=== PATIENT | male | born 1935 | race Hispanic/Latino ===

== ENCOUNTER 2016-08-16 09:47 | Outpatient (CLI) | payer MEDICARE ==
[2016-08-16 10:30] LABS: #Basophils 0.1 thou/uL (0.0-0.2); #Eosinphils 0.2 thou/uL (0.0-0.7); #Lymphocytes 2.7 thou/uL (1.20-3.40); #Monocytes 0.5 thou/uL (0.11-0.59); #Neutrophils 2.9 thou/uL (1.40-6.50); %Basophils 1.3 % (0.0-1.0); %Eosinophils 2.7 % (0.0-10.0); %Monocytes 7.6 % (0.0-10.0); Hematocrit 41.6 % (42.0-52.0); Mean Platelet Volume 7.8 fL (7.4-10.4); White Blood Cell (WBC) Count 6.3 thou/uL (4.8-10.8)
[2016-08-16 10:46] LABS: ALT (SGPT) 25 U/L (0-55); AST (SGOT) 25 U/L (5-34); Alkaline Phosphatase 42 U/L (40-150); Anion Gap 14 mmol/L (10-20); BUN (Urea Nitrogen) 14 mg/dL (8.4-25.7); Bilirubin, Total 0.7 mg/dL (0.2-1.2); Calc. Creatinine Clearance 0 mL/min (70-130); Calcium 9.2 mg/dL (7.8-10.44); Carbon Dioxide 28 mmol/L (23-31); Chloride 104 mmol/L (98-107); Estimated GFR-MDRD 60; LDL Cholesterol, Calculated 74 mg/dL
== END 2016-08-16 09:48 | disposition home or self-care (01) ==
LOC: HPCALD 09:47
PROVIDERS: ATTEND Family Medicine
DX: E78.00 Pure hypercholesterolemia, unspecified (principal); E11.9 Type 2 diabetes mellitus without complications; I10 Essential (primary) hypertension
CPT/HCPCS: 36415; 80053; 80061; 83036; 85025

== ENCOUNTER 2016-12-09 10:02 | Outpatient (CLI) | payer MEDICARE ==
[2016-12-09 10:47] LABS: ALT (SGPT) 16 U/L (8-55); AST (SGOT) 14 U/L (5-34); Albumin 3.8 g/dL (3.4-4.8); Alkaline Phosphatase 48 U/L (40-150); Anion Gap 15 mmol/L (10-20); BUN (Urea Nitrogen) 19 mg/dL (8.4-25.7); Bilirubin, Total 0.8 mg/dL (0.2-1.2); Calc. Creatinine Clearance 0 mL/min (70-130); Calcium 8.8 mg/dL (7.8-10.44); Carbon Dioxide 25 mmol/L (23-31); Cardiac Risk 3.8 (Less than 4.5); Chloride 105 mmol/L (98-107); Cholesterol 158 mg/dl (< 200 Desired); Estimated GFR-MDRD 65; Glucose 185 mg/dL (83-110); HDL Cholesterol 42 mg/dL (>60 Neg Risk); LDL Cholesterol, Calculated 92 mg/dL; Potassium 4.3 mmol/L (3.5-5.1); Protein, Total 6.8 g/dL (5.8-8.1); Sodium 141 mmol/L (136-145); Triglycerides 121 mg/dL (Less than 150)
[2016-12-09 11:08] LABS: PSA-Asymptomatic (SCREENING) 3.02 ng/mL (0-4.0)
[2016-12-09 11:15] LABS: #Basophils 0.1 thou/uL (0.0-0.2); #Eosinphils 0.2 thou/uL (0.0-0.7); #Monocytes 0.5 thou/uL (0.11-0.59); #Neutrophils 2.8 thou/uL (1.40-6.50); %Basophils 0.9 % (0.0-1.0); %Lymphocytes 45.7 % (21.0-51.0); %Monocytes 7.6 % (0.0-10.0); %Neutrophils 42.8 % (42.0-75.0); Hemoglobin 13.7 g/dL (14.0-18.0); Mean Corpuscular HGB CONC 33.7 g/dL (32.0-36.0); Mean Corpuscular Hemoglobin 30.6 pg (27.0-31.0); Platelet Count 171 thou/uL (130-400); RBC Distribution Width 13.1 % (11.5-14.5); Red Blood Cell (RBC) Count 4.48 mill/uL (4.70-6.10); White Blood Cell (WBC) Count 6.5 thou/uL (4.8-10.8)
[2016-12-09 11:36] LABS: Hemoglobin A1c 8.7 % (4.0-6.0)
== END 2016-12-09 10:03 | disposition home or self-care (01) ==
LOC: HPCALD 10:02
PROVIDERS: ATTEND Family Medicine
DX: Z12.5 Encounter for screening for malignant neoplasm of prostate (principal); E78.00 Pure hypercholesterolemia, unspecified; E11.9 Type 2 diabetes mellitus without complications; I10 Essential (primary) hypertension
CPT/HCPCS: 36415; 80053; 80061; 83036; 84443; 85025; G0103

== ENCOUNTER 2020-11-10 08:22 | Outpatient (CLI) | payer MEDICARE | END 2020-11-10 08:23 | disposition home or self-care (01) | LOC: BURCT 08:22 | PROVIDERS: ATTEND Family Medicine | DX: R74.8 Abnormal levels of other serum enzymes (principal) | CPT/HCPCS: 74177 ==